=== PATIENT | female | born 1950 ===

== ENCOUNTER 2025-04-24 12:07 | Outpatient (CLI) | payer OTHER ==
[~2025-04-24 12:07] MED LIST: AVALIDE 300-251 TAB PO; SYNTHROID50 MCG PO
== END 2025-04-24 12:08 | disposition home or self-care (01) ==
LOC: NUCLEAR 12:07
DX: M89.9 Disorder of bone, unspecified (principal); M81.0 Age-related osteoporosis without current pathological fracture

== ENCOUNTER → 2025-04-24 14:17 | Outpatient (CLI) | payer OTHER ==
[2025-04-24 09:49] LABS: BASO % 0.4 % (0.1-1.2); EOS # 0.08 (0.04-0.54); EOS % 1.5 % (0.7-7.0); LYMPH # 1.17 (1.18-3.74); LYMPH % 21.3 % (19.3-53.1); MEAN PLATELET VOLUME 11.50 fl (9.4-12.4); MONO # 0.49 (0.24-0.82); MONO % 8.9 % (4.7-12.5); NEUT # 3.72 (1.56-6.13); NEUT % 67.7 % (34.0-71.1); RED CELL DISTRIBUTION WIDTH 14.0 % (11.6-14.4)
[2025-04-24 10:54] LABS: ALT/SGPT 37.0 U/L (12-78); AST/SGOT 31.0 U/L (15-37); BILIRUBIN TOTAL 0.57 mg/dL (0.3-1.2); BUN CREA RATIO 22.0 (7.0-25.0); CHOL HDL RATIO 3.2 (0-5.0); CREATININE SERUM 0.95 mg/dL (0.55-1.02); FE 82.0 ug/dl (50-170); GFR 57.82; GLOBULINA 3.5 G/DL (2.4-3.5); GLUCOSE FASTING 80.0 mg/dL (65-100); HDL 52.0 mg/dl (40-60); LDL 96.0 mg/dl (0-130); OSMOLALITY SERUM 289.0 MOSM/KG (275-295); T4 FREE 0.98 NG/ML (0.76-1.46); VLDL 17.0 (0-39)
[2025-04-24 10:55] LABS: TSH 5.19 uIU/mL (0.358-3.74)
[2025-04-24 11:39] LABS: VITAMIN D3 25 HYDROXY 29.11 ng/ml (30-120)
[2025-04-24 14:00] LABS: URINE APPEARANCE Clear; URINE BILIRRUBIN Negative (NEGATIVE); URINE BLOOD Negative; URINE COLOR Yellow; URINE GLUCOSE Negative (NEGATIVE); URINE KETONE Trace (NEGATIVE); URINE LEUKOCYTE Trace; URINE NITRATE Negative; URINE PROTEIN Trace (NEGATIVE); URINE UROBILINOGEN 0.2 E.U./dl
[2025-04-24 14:02] LABS: ob POSITIVE (NEGATIVE)
[2025-04-24 14:04] LABS: URINE BACTERIA 201.5 uL (0.0-1933); URINE CAST 2.49 uL (0.0-1.40); URINE EPITHELIAL CELLS 17.5 uL (0.0-38.8); URINE RBC 5.1 uL (0.0-20.8); URINE WBC 10.7 uL (0.0-23.2)
== END | disposition home or self-care (01) ==
LOC: LAB 08:43
DX: E78.2 Mixed hyperlipidemia (principal); N18.1 Chronic kidney disease, stage 1; I10 Essential (primary) hypertension; E11.22 Type 2 diabetes mellitus with diabetic chronic kidney disease; D50.9 Iron deficiency anemia, unspecified; E03.9 Hypothyroidism, unspecified; Z20.822 Contact with and (suspected) exposure to COVID-19; E04.1 Nontoxic single thyroid nodule; D64.9 Anemia, unspecified